=== PATIENT | female | born 1945 | race Caucasian/White ===

== ENCOUNTER 2025-06-03 12:41 | Emergency (ER) | payer OTHER, SELFPAY ==
[2025-06-03 12:46] VITALS: BP 151/82
--- NOTE | 2025-06-03 13:27 | ED.GENMED ---
History of Present Illness
General
Chief Complaint: Rectal Bleeding
Time Seen by Provider: 06/03/25 13:27
History of Present Illness
History of Present Illness:
TIME OF INITIAL EVALUATION
- 1:30 PM
REVIEW OF OLD RECORDS
- The patient has a history of GERD and has had cholecystectomy. She also reports history of CKD. There are no significant old records in [facility] to review. I did review the notes from GI visit from earlier today in [place] [facility], and was seen by Dr. Ravi who recommended ED evaluation.
CHIEF COMPLAINT(S)
Rectal bleeding and abdominal pain.
HISTORY OF PRESENT ILLNESS
The patient is a 80-year-old female with a history of irritable bowel syndrome and gastroesophageal reflux disease who presented with severe abdominal pain that began around 4:30 AM yesterday. The pain was intense, causing the patient to feel like
she might vomit or lose consciousness. She reported having constipation initially, followed by two soft stool movements around 6:00 PM. Throughout the night, until about 4:00 AM, she experienced frequent bowel movements every half hour. Initially,
stools contained pink blood, which later became deep red. The patient also described some stools appearing as 'sawdust' or 'clots,' turning the toilet bowl deep red upon flushing.
She saw her brownell operator, Dr. Ravi, earlier today after consultation with Dr. Sanchez was unavailable. During the rectal examination, Dr. Ravi noted significant bleeding. The patient stated she feels intermittent pain now but not as severe
as during the night. She reported tenderness in the left upper abdomen but no pain radiating to her back. The bleeding persisted, with notable blood loss during her most recent bowel movement, just before visiting her brownell operator.
PHYSICAL EXAM
- General: Well appearing in no distress
- HEENT: Moist oral mucosa
- Cardiovascular: No murmurs, normal heart rate, regular rhythm, No chest wall tenderness
- Pulmonary: No respiratory distress, breath sounds are clear and equal
- Abdomen: Soft with no peritoneal signs, left upper quadrant tenderness, no left lower quadrant tenderness, digital rectal examination showed small amount of red blood, no external hemorrhoids
- Neurologic: Excellent strength all extremities, no coordination deficits
- Psychiatric: Appropriate mental status, normal insight and judgement
- Extremities: Nontender, no edema, moves all extremities equally
- Skin: No rash, no lesions
PROBLEM LIST
Acute:
- Rectal bleeding
- Abdominal pain
Chronic:
- Irritable bowel syndrome
- Gastroesophageal reflux disease
PLAN
- Obtain abdominopelvic computed tomography (CT) scan to assess the source of bleeding, preferably with contrast, pending blood work review.
- Monitor blood work result to decide on the administration of contrast material for imaging.
DIFFERENTIAL DIAGNOSIS
The Differential Diagnosis includes, in no particular order and is not limited to:
- Diverticular disease
- Colorectal cancer
- Hemorrhoids
- Gastrointestinal angiodysplasia
- Ulcerative colitis
- Crohns disease
- Ischemic colitis
- Anal fissures
- Gastrointestinal tract malignancy
- Peptic ulcer disease
RADIOLOGY
- CTA abdomen pelvis obtained for further evaluation. CT shows colitis with no evidence of active contrast extravasation.
EKG
-
LABS
- White count 17.1, hemoglobin 15.2, chemistries unremarkable, lactic is 1.2, GFR is 57
UPDATE
-06/03/25 - 14:57
Hemoglobin levels are normal, eliminating the immediate need for a blood transfusion. The patient reports intermittent pain, and white blood cell count is slightly elevated, possibly due to pain rather than infection. Kidney function is borderline,
allowing for IV contrast with added hydration to protect the kidneys before the CT scan. A consult with a GI specialist will follow the scan results. Vital signs, including mean arterial pressure and heart rate, are stable with no immediate concerns.
SUMMARY OF ENCOUNTER
The patient, a 80-year-old female with a history of irritable bowel syndrome and gastroesophageal reflux disease, presented with severe abdominal pain and rectal bleeding. The abdominal pain began around 4:30 AM the previous day, accompanied by
frequent bowel movements and significant blood in stools. A consultation with the patients brownell operator noted significant rectal bleeding. Further assessment in the emergency department revealed left upper abdominal tenderness, rectal
bleeding, normal hemoglobin levels, and a slightly elevated white blood cell count. Given the patients stable condition and her preference to manage the condition at home, she was not admitted to the hospital.
MANAGEMENT OF THE PATIENTS CARE WAS DISCUSSED WITH
Consultation with a brownell operator will follow the results of the CT scan to further evaluate the source of bleeding.
PLAN
The plan includes obtaining an abdominopelvic CT scan with contrast to determine the source of the bleeding and reviewing blood work results to ensure the safe administration of contrast material for imaging. The patient will be monitored,
especially kidney function, before the CT scan with adequate hydration. A follow-up consultation with a gastroenterology specialist will be conducted post-imaging to decide on further management steps.
INDEPENDENT REVIEW OF LABS AND INTERPRETATION OF TESTS
My independent review of CBC indicates slightly elevated white blood cell count (leucocytosis). My independent review shows normal hemoglobin levels. My independent review of kidney function tests shows borderline kidney function.
MEDICATION RECONCILIATION
Antibiotics were prescribed to manage the possibility of infection and address the elevated white blood cell count.
MEDICAL DECISION MAKING
-Complexity of Data Reviewed: Chronic conditions affecting care include irritable bowel syndrome and gastroesophageal reflux disease. DDx list includes diverticular disease, colorectal cancer, hemorrhoids, gastrointestinal angiodysplasia, ulcerative
colitis, Crohns disease, ischemic colitis, anal fissures, gastrointestinal tract malignancy, and peptic ulcer disease.
-Data:
Category 1
Lab tests reviewed: CBC showing leucocytosis, kidney function tests indicating borderline results.
Category 3
Consultations planned with a gastroenterology specialist following CT scan results to further discuss the management of rectal bleeding and abdominal pain.
-Risk:
Consideration of Admission/Observation: Escalation of care including admission/observation was considered given the complexity and risk of the patients presenting complaint, exam findings, and/or their underlying comorbidities. However, ultimately,
I feel the patient is safe for outpatient management with close follow-up. Reasoning: Work-up reassuring, does not reveal any acute life/organ-threatening processes, patients symptoms well controlled upon reevaluation, reexamination is reassuring,
vitals are stable, patient agreeable with discharge, reliable for follow-up.
DIAGNOSIS
1. Rectal bleeding (ICD-10: K62.5)
2. colitis
Phy Exam
Physical Exam
Physical Exam:
See HPI
Course
Orders/Labs/Results
Orders:
Orders
06/03/25 13:40
0.9% Sodium Chloride 1000 ml [Nss] 1,000 ml IV BOLUS
06/03/25 13:42
CT Angio Abd/Pelvis w/wo IV [CT Abd/pelvis Angio W/wo Iv] Urgent
Comment:
Reason For Exam: LUQ pain recurrent heavy rectal bleeding
06/03/25 14:06
Type+Screen Urgent
Complete Blood Count/With Diff Urgent
Comprehensive Metabolic Panel Urgent
Lactic Acid Urgent
06/03/25 14:17
ABO2 Urgent
BBK Wristband Number:
Associate notified that ABO2 has been ordered: [id number]
Date: 06/03/25
Time: 14:17
Program Manufacturing Leader ID: [id number]
06/03/25 17:02
Amoxicillin 875 mg/Clav 125 mg [Augmentin 875 mg/125 mg] 1 tablet PO NOW STA
Abnormal Lab Results
06/03/25
14:06
WBC 17.1 H 10^3/uL
(4.8-10.8)
MCHC 32.8 L g/dL
(33.0-37.0)
Abs Immat Gran (auto) 0.1 H 10^3/uL
(0-0.05)
Absolute Neuts (auto) 14.5 H 10^3/uL
(1.4-6.5)
Absolute Monos (auto) 1.2 H 10^3/uL
(0.1-0.6)
Neutrophils % 85.0 H %
(42.2-75.2)
Lymphocytes % 7.0 L %
(20.5-51.1)
Glucose 101 H mg/dl
(70-99)
06/03/25 14:06
06/03/25 14:06
Vital Signs
Initial and Last Documented VS:
Initial Vital Signs
Temp Pulse Resp BP Pulse Ox
37.4 C 113 18 151/82 98
06/03/25 12:46 06/03/25 12:46 06/03/25 12:46 06/03/25 12:46 06/03/25 12:46
Last Documented Vital Signs
Temp Pulse Resp BP Pulse Ox
37.4 C 80 15 130/63 97
06/03/25 12:46 06/03/25 15:07 06/03/25 15:00 06/03/25 15:07 06/03/25 15:08
*Pulse Oximetry
SaO2: 98
Oxygen Mode of Delivery: Room air
Patient hypoxic: no
*Critical Care Note
Total Time (30-74mins, 75-104mins- exclusive of procedures): Not Applicable
ED Attending Note
-
Portions of this chart may have been created with voice recognition software.� Occasional wrong word or��sound alike� substitutions may have occurred due to the inherent limitations of voice recognition software.
Discharge Plan
Departure
Patient Disposition: Home (Routine Discharge)
Date of Disposition: 06/03/25
Time of Disposition: 17:02
Patient with high blood pressure during this ER visit?: Yes
Discharge Problem:
Colitis
Instructions: Bloody Stools, Adult (DC), Colitis
Prescriptions:
New
amoxicillin-pot clavulanate 875-125 mg tablet
1 tab PO BID Qty: 14 0RF
No Action
rosuvastatin 5 mg tablet
5 mg PO DAILY
famotidine [Pepcid] 40 mg Tablet
40 mg PO BIDPRN PRN (Reason: gerd)
aspirin 81 mg Tablet,Delayed Release (Dr/Ec)
81 mg PO DAILY
calcium carbonate [Calcium 600] 600 mg calcium (1,500 mg) Tablet
1,200 mg PO DAILY
Referrals:
Jacob Nick DO [Family Provider, Family Practice]
Activity Restrictions/Additional Instructions:
CAT SCAN: 'Severe colitis of the descending colon. Regions of mucosal enhancement in the colon, but no clear evidence for intraluminal contrast extravasation to indicate active gastrointestinal bleeding during the course of this exam'.
Follow-up with your GI doctor. Your white blood cell count is high at 17.1 but your hemoglobin level is normal at 15.2. Kidney function was borderline but normal. Return here if worse or other concerns.
I sent a prescription for antibiotics to your pharmacy.
Interventions
Interventions:
*Risk Screen - Suicide Last Done: 06/03/25 12:46
*General Assessment Last Done: 06/03/25 12:46
*Neglect/Abuse Screening Last Done: 06/03/25 14:02
*ED- Fall Risk Assessment Last Done: 06/03/25 14:02
*ED COVID-19 Vaccine History Last Done: 06/03/25 12:46
ED- Pulmonary Assessment Last Done: 06/03/25 15:08
Discharge Date and Time
Print Language: HEBREW
[2025-06-03 13:57] VITALS: BMI 24.2
[2025-06-03 14:05] VITALS: BP 117/56
[2025-06-03] MEDS: NSS 1000 IV (14:09)
[2025-06-03 14:19] LABS: Hematocrit 46.4 % (37.0-47.0); Hemoglobin 15.2 g/dL (12.0-16.0); Mean Corp Hgb Conc. 32.8 g/dL (33.0-37.0); Mean Corpuscular Volume 92.1 fL (81.0-99.0); Nucleated Red Blood Cells % 0 %; Platelet Count 269 10^3/uL (130-400); Red Cell Dist. Width 13.4 % (11.5-14.5)
[2025-06-03 14:36] LABS: ALT (SGPT) < 10 U/L (0-35); AST (SGOT) 25 U/L (14-36); Albumin 4.3 g/dl (3.5-5.0); Alkaline Phosphatase 77 U/L (38-126); Blood Urea Nitrogen 15 mg/dl (7-17); Calcium 9.7 mg/dl (8.4-10.2); Carbon Dioxide 23 mmol/L (22-30); Chloride 107 mmol/L (98-107); Estimated Creatinine Clearance 36 ml/min; Glucose 101 mg/dl (70-99); Potassium 4.0 mmol/L (3.5-5.1); Sodium 138 mmol/L (135-145); Total Protein 6.7 g/dl (6.3-8.2); eGFR 57.31
[2025-06-03 15:00] VITALS: BP 130/63
[2025-06-03 15:07] VITALS: BP 130/63
[2025-06-03] MEDS: AUGMENTIN 875 MG/125 MG 1 TABLET PO (17:25)
== END 2025-06-03 17:54 | disposition home or self-care (01) ==
LOC: EMR 12:41
PROVIDERS: EMERGENCY PHYSICIAN Emergency Medicine; FAMILY PHYSICIAN Family Medicine
DX: K52.9 Noninfective gastroenteritis and colitis, unspecified (principal); N18.9 Chronic kidney disease, unspecified; K21.9 Gastro-esophageal reflux disease without esophagitis; R03.0 Elevated blood-pressure reading, without diagnosis of hypertension
CPT/HCPCS: 99285; 96360; 74174; 80053; 83605; 85025; 86850; 86900; 86901; Q9967